=== PATIENT | female | born 1990 | race Caucasian/White ===

== ENCOUNTER 2018-02-08 19:52 | Emergency (ER) | payer MEDICAID ==
[~2018-02-08] VITALS: Ht 152.4 cm; Wt 83.9 kg
[~2018-02-08 19:52] MED LIST: HYDR-3240 PO
[2018-02-08] MEDS ORDERED: SODIUM CHLORIDE FLUSH 10ML SYR IVF ONE ×2 (20:00→20:30)
[2018-02-08 20:26] LABS: BASOPHILS # (AUTO) 0.06 x10^3/uL (0-0.1); BASOPHILS % (AUTO) 1 % (0-1); EOSINOPHILS # (AUTO) 0.06 x10^3/uL (0-0.4); EOSINOPHILS % (AUTO) 1 % (1-7); LYMPHOCYTES # (AUTO) 3.69 x10^3/uL (1-3.4); LYMPHOCYTES % (AUTO) 35 % (22-44); MD NO; MEAN CORPUSCULAR HEMOGLOBIN 30.5 pg (27.0-34.8); MEAN CORPUSCULAR HGB CONC 33.8 g/dL (32.4-35.8); MEAN CORPUSCULAR VOLUME 90.4 fL (80-100); MEAN PLATELET VOLUME 8.4 fL (7.4-10.4); MONOCYTES # (AUTO) 0.55 x10^3/uL (0.2-0.8); MONOCYTES % (AUTO) 5 % (2-9); NEUTROPHILS # (AUTO) 6.17 x10^3/uL (1.8-6.8); NEUTROPHILS % (AUTO) 59 % (42-75); PLATELET COUNT 251 x10^3/uL (130-400); RED BLOOD COUNT 5.11 x10^6/uL (3.82-5.3); RED CELL DISTRIBUTION WIDTH 13.1 % (9.6-15.2)
[2018-02-08] MEDS ORDERED: MORPHINE SULFATE 4 MG/ML, 1ML IVPush PRN (20:30)
[2018-02-08] MEDS ORDERED: ONDANSETRON 2MG/ML, 2ML IVPush PRN (20:30)
[2018-02-08 20:36] LABS: HCG UR SG 1.024 (1.003-1.030); MICROSCOPIC AUTO
[2018-02-08 20:37] LABS: ALANINE AMINOTRANSFERASE 44 U/L (12-78); ALBUMIN 4.1 g/dL (3.4-5.0); ANION GAP 9 mmol/L (5-15); BILIRUBIN, DIRECT 0.2 mg/dL (0.1-0.2); CALCIUM 8.6 mg/dL (8.5-10.1); CHLORIDE 110 mmol/L (98-107); CREATININE 0.84 mg/dL (0.55-1.02)
[2018-02-08 20:39] LABS: ALKALINE PHOSPHATASE 81 U/L (45-117); BILIRUBIN,INDIRECT 0.3 mg/dL (0.0-2.0); BILIRUBIN,TOTAL 0.5 mg/dL (0.2-1.0); TOTAL PROTEIN 8.3 g/dL (6.4-8.2)
[2018-02-08 20:46] LABS: CULTURE INDICATED? YES
[2018-02-08] MEDS ORDERED: OMNIPAQUE 350 MG/ML, 100ML BOTTLE ONE (21:06)
[2018-02-08 22:51] LABS: MICROSCOPIC NOT IND
[2018-02-08 22:53] LABS: CULTURE INDICATED? NO
[2018-02-08 23:23] VITALS: BP 134/83
[2018-02-08] MEDS ORDERED: MORPHINE SULFATE 4 MG/ML, 1ML ONE (23:26)
[2018-02-08] MEDS ORDERED: ONDANSETRON 2MG/ML, 2ML ONE (23:26)
== END 2018-02-09 00:18 | disposition home or self-care (01) ==
LOC: ED 23:47
DX: R10.31 Right lower quadrant pain (principal); Z90.49 Acquired absence of other specified parts of digestive tract
CPT/HCPCS: 36415; 74177; 76830; 80048; 80076; 81001; 81003; 81025; 82040; 85025; 87086; 96374; 96375; 99284; J2405; Q9967

== ENCOUNTER 2018-07-09 18:50 | Emergency (ER) | payer MEDICAID, OTHER ==
[~2018-07-09] VITALS: Ht 152.4 cm; Wt 83.1 kg
[2018-07-09 19:03] VITALS: BP 134/83
== END 2018-07-09 20:16 | disposition home or self-care (01) ==
LOC: ED 20:07
DX: S29.012A Strain of muscle and tendon of back wall of thorax, initial encounter (principal); S50.02XA Contusion of left elbow, initial encounter; G89.11 Acute pain due to trauma; V49.09XA Driver injured in collision with other motor vehicles in nontraffic accident, initial encounter; Y93.89 Activity, other specified; Y92.89 Other specified places as the place of occurrence of the external cause; Y99.8 Other external cause status
CPT/HCPCS: 72072; 99283

== ENCOUNTER 2018-07-28 08:34 | Emergency (ER) | payer MEDICAID, OTHER ==
[~2018-07-28] VITALS: Ht 152.4 cm; Wt 81.9 kg
[2018-07-28 08:36] VITALS: BP 130/86
--- NOTE | 2018-07-28 09:44 | NUR ---
AMBULATORY TO CHECKOUT C STEADY GAIT. PT VERBALIZED UNDERSTANDING TO DC INSTRUCTIONS.
== END 2018-07-28 09:45 | disposition home or self-care (01) ==
LOC: ED 09:39
DX: S46.812A Strain of other muscles, fascia and tendons at shoulder and upper arm level, left arm, initial encounter (principal); Z90.49 Acquired absence of other specified parts of digestive tract; X58.XXXA Exposure to other specified factors, initial encounter; Y93.89 Activity, other specified; Y92.89 Other specified places as the place of occurrence of the external cause; Y99.8 Other external cause status
CPT/HCPCS: 99283

== ENCOUNTER 2019-11-01 16:08 | Emergency (ER) | payer MEDICAID ==
[~2019-11-01] VITALS: Ht 152.4 cm; Wt 73.3 kg
[2019-11-01] MEDS ORDERED: SODIUM CHLORIDE 0.9% 1,000 ML IV ONE (16:15)
[2019-11-01 16:46] LABS: BASOPHILS # (AUTO) 0.05 x10^3/uL (0-0.1); BASOPHILS % (AUTO) 1 % (0-1); EOSINOPHILS # (AUTO) 0.02 x10^3/uL (0-0.4); EOSINOPHILS % (AUTO) 0 % (1-7); LYMPHOCYTES % (AUTO) 13 % (22-44); MD NO; MEAN CORPUSCULAR HGB CONC 33.6 g/dL (32.4-35.8); MEAN CORPUSCULAR VOLUME 92.4 fL (80-100); MEAN PLATELET VOLUME 8.4 fL (7.4-10.4); MONOCYTES # (AUTO) 0.64 x10^3/uL (0.2-0.8); MONOCYTES % (AUTO) 6 % (2-9); NEUTROPHILS # (AUTO) 9.06 x10^3/uL (1.8-6.8); NEUTROPHILS % (AUTO) 81 % (42-75); PLATELET COUNT 183 x10^3/uL (130-400); RED BLOOD COUNT 4.55 x10^6/uL (3.82-5.3); RED CELL DISTRIBUTION WIDTH 12.6 % (9.6-15.2)
[2019-11-01 16:55] LABS: ALBUMIN 3.8 g/dL (3.4-5.0); ANION GAP 8 mmol/L (5-15); CALCIUM 8.4 mg/dL (8.5-10.1); CHLORIDE 109 mmol/L (98-107)
--- NOTE | 2019-11-01 16:57 | NUR ---
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
[2019-11-01 17:01] LABS: ALANINE AMINOTRANSFERASE 23 U/L (12-78); ALKALINE PHOSPHATASE 53 U/L (45-117); CREATININE 0.88 mg/dL (0.55-1.02); TOTAL PROTEIN 7.8 g/dL (6.4-8.2)
--- NOTE | 2019-11-01 17:07 | NUR ---
PT CAME IN CO OF BILAT FLANK PAIN THAT STARTED THIS MORNING AND GOT WORSE THE DAY WENT ON. PT WENT TO [facility] AND WAS TOLD SHE MAY HAVE KIDNEY STONES AND TO COME IN. UA SENT. LABS DRAW. IV STARTED. FLUIDS INFUSING
[2019-11-01 17:15] LABS: MICROSCOPIC AUTO
[2019-11-01] MEDS ORDERED: KETOROLAC 30 MG/1 ML IV ONE (18:00)
[2019-11-01] MEDS ORDERED: ACETAMINOPHEN 325 MG TABLET PO ONE (18:00)
[2019-11-01] MEDS ORDERED: ONDANSETRON 2MG/ML, 2ML IVPush ONE (18:00)
--- NOTE | 2019-11-01 18:13 | NUR ---
PT TO CT
[2019-11-01] MEDS ORDERED: CEFTRIAXONE PMX 1GM/50ML 50 ML IV ONE (18:30)
[2019-11-01] MEDS ORDERED: KETOROLAC 30 MG/1 ML ONE (18:34)
[2019-11-01] MEDS ORDERED: CEFTRIAXONE PMX 1GM/50ML 50 ML ONE (18:34)
[2019-11-01] MEDS ORDERED: ACETAMINOPHEN 325 MG TABLET ONE (18:34)
[2019-11-01] MEDS ORDERED: ONDANSETRON 2MG/ML, 2ML ONE (18:34)
[2019-11-01 18:44] VITALS: BP 116/74
--- NOTE | 2019-11-01 18:44 | NUR ---
PT RESTING IN [facility]. VSS. NAD
== END 2019-11-01 19:37 | disposition home or self-care (01) ==
LOC: ED 19:34
DX: N30.01 Acute cystitis with hematuria (principal); R11.0 Nausea
CPT/HCPCS: 36415; 74176; 80053; 81001; 84703; 85025; 87077; 87086; 87186; 96361; 96365; 96375; 99284; J0696; J1885; J2405; J7030

== ENCOUNTER 2019-11-04 22:20 | Emergency (ER) | payer MEDICAID ==
[~2019-11-04] VITALS: Ht 152.4 cm; Wt 53.3 kg
--- NOTE | 2019-11-04 23:24 | NUR ---
ASSUMED CARE OF PATIENT. PATIENT REPORTS A HEADACHE X4 DAYS WITH DIZZINESS. VS STABLE. PT HAS BEEN SEEN BY DR VAZQUEZ. CALL LIGHT IN PLACE. WILL CONTINUE TO MONITOR.
[2019-11-04] MEDS ORDERED: DIPHENHYDRAMINE 50 MG/ML, 1ML IV ONE (23:30)
[2019-11-04] MEDS ORDERED: PROCHLORPERAZINE 5 MG/ML, 2ML IV ONE (23:30)
[2019-11-04] MEDS ORDERED: KETOROLAC 30 MG/1 ML IVPush ONE (23:30)
[2019-11-04] MEDS ORDERED: SODIUM CHLORIDE 0.9% 1,000ML IVBOLUS ONE (23:30)
[2019-11-04] MEDS ORDERED: SODIUM CHLORIDE FLUSH 10ML SYR IVF ONE (23:30)
--- NOTE | 2019-11-04 23:38 | NUR ---
PT BACK FROM CT
[2019-11-04] MEDS ORDERED: PROCHLORPERAZINE 5 MG/ML, 2ML ONE (23:48)
[2019-11-04] MEDS ORDERED: DIPHENHYDRAMINE 50 MG/ML, 1ML ONE (23:49)
[2019-11-04] MEDS ORDERED: KETOROLAC 30 MG/1 ML ONE (23:49)
--- NOTE | 2019-11-04 23:57 | NUR ---
PT MEDICATED. VS STABLE. FRIEND AT BEDSIDE. CALL LIGHT IN PLACE. WILL CONTINUE TO MONITOR.
[2019-11-04] MEDS ORDERED: CIPRO (23:59)
--- NOTE | 2019-11-05 00:20 | NUR ---
DR VAZQUEZ HAS UPDATED PATIENT.
[2019-11-05 01:00] VITALS: BP 115/78
== END 2019-11-05 01:10 | disposition home or self-care (01) ==
LOC: ED 22:50
DX: G44.209 Tension-type headache, unspecified, not intractable (principal); R11.0 Nausea; R42 Dizziness and giddiness; Z90.49 Acquired absence of other specified parts of digestive tract
CPT/HCPCS: 70450; 96361; 96374; 96375; 99284; J0780; J1200; J1885; J7030

== ENCOUNTER 2020-02-20 15:54 | Emergency (ER) | payer MEDICAID ==
[~2020-02-20] VITALS: Ht 152.4 cm; Wt 70.4 kg
[~2020-02-20 15:54] MED LIST changes: +CIPRO
[2020-02-20 16:33] VITALS: BP 137/94
[2020-02-20] MEDS ORDERED: FAMOTIDINE 20 MG TABLET ONE (16:38)
--- NOTE | 2020-02-20 16:39 | NUR ---
PT MEDICATED PER MAY. PT ALSO TOOK HOME BENADRYL 25MG NOW.
[2020-02-20] MEDS ORDERED: FAMOTIDINE 20 MG TABLET PO ONE (17:00)
== END 2020-02-20 20:02 | disposition home or self-care (01) ==
LOC: ED 17:10
DX: L50.0 Allergic urticaria (principal); T78.1XXA Other adverse food reactions, not elsewhere classified, initial encounter; X58.XXXA Exposure to other specified factors, initial encounter
CPT/HCPCS: 99283; J7512

== ENCOUNTER 2020-03-06 16:32 | Emergency (ER) | payer MEDICAID ==
[~2020-03-06] VITALS: Ht 152.4 cm; Wt 69.7 kg
[2020-03-06 17:11] LABS: BASOPHILS % (AUTO) 1 % (0-1); EOSINOPHILS % (AUTO) 1 % (1-7); LYMPHOCYTES % (AUTO) 39 % (22-44); MEAN CORPUSCULAR HEMOGLOBIN 31.4 pg (27.0-34.8); MEAN CORPUSCULAR HGB CONC 33.9 g/dL (32.4-35.8); MEAN PLATELET VOLUME 8.2 fL (7.4-10.4); MONOCYTES % (AUTO) 6 % (2-9); NEUTROPHILS % (AUTO) 53 % (42-75); PLATELET COUNT 223 x10^3/uL (130-400); RED BLOOD COUNT 4.94 x10^6/uL (3.82-5.3); RED CELL DISTRIBUTION WIDTH 12.3 % (9.6-15.2)
[2020-03-06 17:17] LABS: MD NO
[2020-03-06 17:21] LABS: ALBUMIN 4.3 g/dL (3.4-5.0); ANION GAP 7 mmol/L (5-15); CALCIUM 9.1 mg/dL (8.5-10.1); CHLORIDE 108 mmol/L (98-107)
[2020-03-06 17:27] LABS: ALANINE AMINOTRANSFERASE 57 U/L (12-78); ALKALINE PHOSPHATASE 66 U/L (45-117); BILIRUBIN,TOTAL 0.8 mg/dL (0.2-1.0); CREATININE 0.84 mg/dL (0.55-1.02); TOTAL PROTEIN 8.2 g/dL (6.4-8.2); TROPONIN I < 0.015 ng/mL (0.000-0.045)
[2020-03-06 19:17] VITALS: BP 120/85
== END 2020-03-06 19:26 | disposition home or self-care (01) ==
LOC: ED 17:00
DX: R07.89 Other chest pain (principal); Z90.49 Acquired absence of other specified parts of digestive tract
CPT/HCPCS: 36415; 71045; 80053; 84484; 84703; 85025; 85379; 93005; 99285